=== PATIENT | female | born 1985 | race Caucasian/White ===

== ENCOUNTER 2017-11-10 19:44 | Emergency (ER) | payer SELFPAY ==
[2017-11-10 20:41] LABS: Urine Blood 3+ (NEG); Urine Glucose NEGATIVE (NEG); Urine Protein 2+ (NEG); Urine Specific Gravity 1.025 (1.005-1.030)
[2017-11-10 20:44] LABS: Urine Bacteria <20 /HPF (<20); Urine Culture Reflex Order NOT NEEDED; Urine RBC LOADED /HPF (NONE SEEN)
[2017-11-10] MEDS ORDERED: FENTANYL CITR 100 MCG/2 ML ONE (21:02)
[2017-11-10] MEDS ORDERED: NA CHLORIDE 0.9% 1,000 ML ONE (21:02)
[2017-11-10] MEDS ORDERED: ONDANSETRON 4 MG/2 ML VIAL ONE (21:02)
[2017-11-10] MEDS ORDERED: CEFTRIAXONE/SWI 1gm 1 GM/10 ML SYR ONE (21:08)
--- NOTE | 2017-11-10 21:48 | RAD REPORT ---
EXAM DESCRIPTION: CT - Stone Protocol - 11/10/2017 9:32 pm CLINICAL HISTORY: Abdominal pain, vomiting, hematuria, history of UTI COMPARISON: CT imaging December 2014 TECHNIQUE: Axial [address] imaging of the abdomen and pelvis was performed without IV contrast. No IV contrast was given because of allergy, abnormal renal function, patient refusal or physician re quest. Oral contrast was given. All CT scans are performed using dose optimization technique as appropriate and may include automated exposure control or mA/KV adjustment according to patient size. FINDINGS: No suspicious findings in the lung bases. The liver, spleen and pancreas show no suspicious findings on non-contrast imaging. Gallbladder and b iliary tree are also without suspicious finding. Gallstones can be occult. No hydronephrosis or suspicious renal mass. No significant adrenal finding. Isodense renal masses an d pyelonephritis cannot be excluded in the absence of IV contrast. The urinary bladder is without sig nificant finding. Uterus and ovaries show no suspicious findings. No fallopian tube dilatation. No dilated bowel loops or bowel wall thickening. No free air, free fluid or inflammatory stranding. N o hernia, mass or bulky lymphadenopathy. No suspicious bony findings. IMPRESSION: No hydronephrosis, obstructing calculus or other acute finding. No acute bladder find ing seen. Pyelonephritis and isodense masses are not excluded on a noncontrast study. Overall examination is limited in the absence of oral and IV contrast. No acute finding identifiable.
--- NOTE | 2017-11-10 22:25 | EDPHYS ---
Physician Documentation [facility] Name: Erin Saha Age: 32 yrs Sex: Female : 1985 Arrival Date: 11/10/2017 Time: 19:48 Bed 28 Private MD: ED Physician Jose Carreon HPI: 11/10 21:06 This 32 yrs old Female presents to ER via Ambulatory with complaints of gs Urinary Problem, Vomiting. 21:06 The patient presents with flank pain, urinary symptoms. Onset: The symptoms/episode gs began/occurred 1 week(s) ago. Modifying factors: The symptoms are alleviated by nothing, the symptoms are aggravated by nothing. Associated signs and symptoms: Pertinent positives: vomiting. Associated signs and symptoms: Pertinent positives: hematuria, Pertinent negatives: fever. Severity of symptoms: At their worst the symptoms were moderate, in the emergency department the symptoms are unchanged. The patient has experienced similar episodes in the past, a few times. 21:06 The patient has been recently seen by a physician: just lilia khan. 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 - Social history:: Smoking status: Patient uses tobacco products, smokes one-half pack cigarettes per day. - Ebola Screening: : No symptoms or risks identified at this time. ROS: 21:06 All other systems are negative. gs Exam: 21:06 Head/Face: Normocephalic, atraumatic. Eyes: Pupils equal round and reactive to light, gs extra-ocular motions intact. Lids and lashes normal. Conjunctiva and sclera are non-icteric and not injected. Cornea within normal limits. Periorbital areas with no swelling, redness, or edema. ENT: Nares patent. No nasal discharge, no septal abnormalities noted. Tympanic membranes are normal and external auditory canals are clear. Oropharynx with no redness, swelling, or masses, exudates, or evidence of obstruction, uvula midline. Mucous membranes moist. Neck: Trachea midline, no thyromegaly or masses palpated, and no cervical lymphadenopathy. Supple, full range of motion without nuchal rigidity, or vertebral point tenderness. No Meningismus. Chest/axilla: Normal chest wall appearance and motion. Nontender with no deformity. No lesions are appreciated. 21:06 Respiratory: Lungs have equal breath sounds bilaterally, clear to auscultation and percussion. No rales, rhonchi or wheezes noted. No increased work of breathing, no retractions or nasal flaring. Abdomen/GI: Soft, non-tender, with normal bowel sounds. No distension or tympany. No guarding or rebound. No evidence of tenderness throughout. Skin: Warm, dry with normal turgor. Normal color with no rashes, no lesions, and no evidence of cellulitis. MS/ Extremity: Pulses equal, no cyanosis. Neurovascular intact. Full, normal range of motion. Neuro: Awake and alert, GCS 15, oriented to person, place, time, and situation. Cranial nerves II-XII grossly intact. Motor strength 5/5 in all extremities. Sensory grossly intact. Cerebellar exam normal. Normal gait. 21:06 Constitutional: The patient appears alert, awake. 21:06 Cardiovascular: Rate: tachycardic, Rhythm: regular, Pulses: no pulse deficits are appreciated. 21:06 Back: CVA tenderness, that is moderate, is noted bilaterally. Vital Signs: 20:02 BP 154 / 101; Pulse 119; Resp 18; Temp 98.2; Pulse Ox 99% on R/A; Weight 77.11 kg (R); ak1 Height 5 ft. 3 in. (160.02 cm) (R); Pain 8/10; 21:45 BP 118 / 78; Pulse 91; Resp 17; Pulse Ox 100% on R/A; rk2 22:56 BP 131 / 83; Pulse 88; Resp 16; Pulse Ox 98% on R/A; rk2 20:02 Body Mass Index 30.11 (77.11 kg, 160.02 cm) ak1 MDM: 20:11 Patient medically screened. gs 21:06 Differential diagnosis: nonspecific abdominal pain, urinary tract infection, kidney gs stone. Data reviewed: vital signs, nurses notes. 11/10 20:16 Order name: Urine Microscopic Only; Complete Time: 20:50 gs 11/10 20:40 Order name: Urine Dipstick--Ancillary (enter results); Complete Time: 20:50 ms 11/10 20:40 Order name: Urine --Ancillary (enter results); Complete Time: 20:50 ms 11/10 20:40 Order name: CT Stone Protocol; Complete Time: 22:24 gs 11/10 20:16 Order name: Urine Dipstick-Ancillary (obtain specimen); Complete Time: 20:34 gs 11/10 20:17 Order name: Urine Test (obtain specimen); Complete Time: 20:34 gs Administered Medications: 21:04 Drug: fentaNYL (PF) 25 mcg Route: IVP; Site: left antecubital; rk2 22:39 Follow up: Response: No adverse reaction rk2 21:05 Drug: NS 0.9% 1000 ml Route: IV; Rate: 1 bolus; Site: left antecubital; rk2 22:40 Follow up: Response: No adverse reaction; IV Status: Completed infusion rk2 21:05 Drug: Zofran 4 mg Route: IVP; Site: left antecubital; rk2 22:40 Follow up: Response: No adverse reaction rk2 21:15 Drug: Rocephin - (cefTRIAXone) 1 grams Route: IVPB; Infused Over: 30 mins; Site: right kr2 upper arm; 22:39 Follow up: IV Status: Completed infusion rk2 21:25 Drug: fentaNYL (PF) 75 mcg Route: IVP; Site: right upper arm; rk2 22:39 Follow up: Response: No adverse reaction; Pain is decreased rk2 22:36 Drug: Demerol 25 mg Route: IVP; Site: right upper arm; rk2 Disposition: 11/10/17 22:25 Discharged to Home. Impression: Hematuria. - Condition is Stable. - Discharge Instructions: Hematuria, Adult. - Medication Reconciliation Form, Thank You Letter, Antibiotic Education, Prescription Opioid Use form. - Follow up: Brittney Diego; When: 2 - 3 days; Reason: Re-evaluation by your physician. Signatures: Dispatcher [employer] EDDonnie Hunter MD MD rn Krenek, Amber, RN RN ak1 Jose Carreon MD MD gs Reaves, Karey RN RN kr2 Simi Cruz, RN RN rk2 Corrections: (The following items were deleted from the chart) 22:57 22:25 11/10/2017 22:25 Discharged to Home. Impression: Hematuria. Condition is Stable. rk2 Discharge Instructions: Hematuria, Adult. Forms are Medication Reconciliation Form, Thank You Letter, Antibiotic Education, Prescription Opioid Use. Follow up: Brittney Diego; When: 2 - 3 days; Reason: Re-evaluation by your physician. rn
--- NOTE | 2017-11-10 22:25 | ER ---
Nurse's Notes 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 pt seen by PCP 3 ak1 days FUNCTIONAL SUPPORT ANALYST started Keflex, vomiting X3 days with increased blood in urine. Transition of care: patient was not received from another setting of care. Onset of symptoms is unknown. Risk Assessment: Do you want to hurt yourself or someone else? Patient reports no desire to harm self or others. Initial Sepsis Screen: Does the patient meet any 2 criteria? No. Patient's initial sepsis screen is negative. Does the patient have a suspected source of infection? No. Patient's initial sepsis screen is negative. Care prior to arrival: None. 19:59 Method Of Arrival: Ambulatory ak1 19:59 Acuity: KOKO 3 ak1 Triage Assessment: 21:15 General: Appears in no apparent distress. well groomed, well developed, well nourished, rk2 Behavior is calm, cooperative. 21:15 Pain: Complains of pain in abdomen. Neuro: Level of Consciousness is alert, obeys rk2 commands, Oriented to person, place, time, situation. Respiratory: Airway is patent Respiratory effort is even, unlabored, Respiratory pattern is regular, symmetrical. GI: Reports lower abdominal pain. 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 - Social history:: Smoking status: Patient uses tobacco products, smokes one-half pack cigarettes per day. - Ebola Screening: : No symptoms or risks identified at this time. Screenin:15 Abuse screen: Denies threats or abuse. rk2 21:15 Nutritional screening: No deficits noted. Tuberculosis screening: No symptoms or risk rk2 factors identified. Fall Risk None identified. Assessment: 22:00 Reassessment: Patient appears in no apparent distress at this time. No changes from rk2 previously documented assessment. Patient and/or family updated on plan of care and expected duration. Pain level reassessed. 22:00 GI: Reports lower abdominal pain. rk2 22:00 GI: Abd is soft X 4 quads. rk2 22:53 GI:. rk2 Vital Signs: 20:02 BP 154 / 101; Pulse 119; Resp 18; Temp 98.2; Pulse Ox 99% on R/A; Weight 77.11 kg (R); ak1 Height 5 ft. 3 in. (160.02 cm) (R); Pain 8/10; 21:45 BP 118 / 78; Pulse 91; Resp 17; Pulse Ox 100% on R/A; rk2 22:56 BP 131 / 83; Pulse 88; Resp 16; Pulse Ox 98% on R/A; rk2 20:02 Body Mass Index 30.11 (77.11 kg, 160.02 cm) ak1 ED Course: 19:48 Patient arrived in ED. al2 20:00 Triage completed. ak1 20:02 Arm band placed on Patient placed in an exam room, on a stretcher, Patient notified of ak1 wait time. 20:05 Jose Carreno MD is Attending Physician. gs 20:10 Simi Cruz, DANIA is Primary Nurse. rk2 21:04 CT Stone Protocol Sent. rk2 21:08 Radiology exam delayed due to patient refusing to come down to CT, wants pain meds. nj Notified Dr. Carreon. 21:15 Patient has correct armband on for positive identification. Bed in low position. Call rk2 light in reach. 21:15 Inserted saline lock: 24 gauge in right upper arm, using aseptic technique. kr2 21:[address] via stretcher. nj 21:31 CT completed. Patient tolerated procedure well. Patient moved back from CT. nj 21:32 CT Stone Protocol In Process Unspecified. EDMS 22:25 Brittney Diego MD is Referral Physician. rn 22:56 No provider procedures requiring assistance completed. IV discontinued. rk2 Administered Medications: 21:04 Drug: fentaNYL (PF) 25 mcg Route: IVP; Site: left antecubital; rk2 22:39 Follow up: Response: No adverse reaction rk2 21:05 Drug: NS 0.9% 1000 ml Route: IV; Rate: 1 bolus; Site: left antecubital; rk2 22:40 Follow up: Response: No adverse reaction; IV Status: Completed infusion rk2 21:05 Drug: Zofran 4 mg Route: IVP; Site: left antecubital; rk2 22:40 Follow up: Response: No adverse reaction rk2 21:15 Drug: Rocephin - (cefTRIAXone) 1 grams Route: IVPB; Infused Over: 30 mins; Site: right kr2 upper arm; 22:39 Follow up: IV Status: Completed infusion rk2 21:25 Drug: fentaNYL (PF) 75 mcg Route: IVP; Site: right upper arm; rk2 22:39 Follow up: Response: No adverse reaction; Pain is decreased rk2 22:36 Drug: Demerol 25 mg Route: IVP; Site: right upper arm; rk2 Outcome: 22:25 Discharge ordered by . rn 22:56 Discharged to home ambulatory, with family. rk2 22:56 Condition: good 22:56 Discharge instructions given to patient. 22:57 Patient left the ED. rk2 Signatures: Dispatcher [employer] EDMS Donnie Subramanian MD MD rn Davis, Victoria vr Krenek, Amber RN RN ak1 Itz Forde Gregory, MD MD gs Reaves, Karey RN RN [email or web address] Guadalupe Cutler Rhonda, RN RN rk2 Corrections: (The following items were deleted from the chart) 21:09 20:44 Patient moved to [facility]
[2017-11-10] MEDS ORDERED: MEPERIDINE HCL 50 MG/ML AMP ONE (22:35)
== END 2017-11-10 22:57 | disposition home or self-care (01) ==
LOC: ER 19:44
DX: R31.9 Hematuria, unspecified (principal); F32.9 Major depressive disorder, single episode, unspecified; F17.210 Nicotine dependence, cigarettes, uncomplicated; Z88.5 Allergy status to narcotic agent; Z88.6 Allergy status to analgesic agent; Z88.8 Allergy status to other drugs, medicaments and biological substances
CPT/HCPCS: 74176; 76377; 81003; 81015; 81025; 99284; J0696; J2175; J2405; J3010; J7030

== ENCOUNTER 2020-07-26 14:59 | Emergency (ER) | payer SELFPAY ==
--- OUTSIDE RECORDS SUMMARY | 2020-07-26 15:03 | XMS REPORT | Continuity of Care Document ---
:1985 Author Organization [facility] t Address [address] [place] [address] Care Team Providers Name Role Phone NONSTAFF Primary Care Physician Unavailable Jeancarlos GRACIA, F Attending Clinician KADEN Attending Clinician Unavailable BEATRIZ Attending Clinician Unavailable NAT Attending Clinician Unavailable MARTY Attending Clinician Unavailable LAW Attending Clinician Unavailable Adrianna WARNERP, T Attending Clinician THOMAS Attending Clinician Unavailable Akin Medellin MD Attending Clinician TERESITA Attending Clinician Unavailable Alfredo HENDERSON Attending Clinician Nikolay NAJERA E Attending Clinician Jer Hsu MD Attending Clinician PENNY Attending Clinician Unavailable KEITH Attending Clinician Unavailable Delmy Tee MD Attending Clinician Sandra Hwang APN Attending Clinician NELDA HAINES M.D. Attending Clinician Unavailable LAW Admitting Clinician Unavailable TERESITA Admitting Clinician Unavailable PENNY Admitting Clinician Unavailable NELDA HAINES M.D. Admitting Clinician Unavailable Payers Payer Name Policy Type Policy Number Effective Date Expiration Date Brisa reece [facility] [id number] [facility] Choice - Patients Medical Center Problems This patient has no known problems. Allergies, Adverse Reactions, Alerts Allergy Allergy Status Severity Reaction(s) Onset Inactive Treating Comm ents Source Name Type Date Date Clinician NSAIDS DA Active SV 2018-05 [facility] ([facility] 06-16 [place] roidal 00:00: d Anti-Inf 00 Medical [facility] dicyclom DA Active [facility] ine HCl 11-13 [place] 00:[facility]: e 00 [facility] ketorola DA Active [facility] c 11-13 [place] trometha 00:00: e mine 00 [facility] pantopra DA Active [facility] zole 11-13 [place] sodium 00:00: e 00 [facility] Center morphine DA Active U [facility] 11-13 [place] 00:[facility]: e 00 [facility] ibuprofe DA Active [place] [facility] n 11-13 [place] 00:[facility]: e 00 [facility] Center NSAIDS Allergy Active Severe cant breath [facility]idal Substanc 00:00: Patient Anti-Inf e 00 s [facility] Morphine Allergy Active Moderate rash and [facility] headache [facility] - [facility]anc 00:00: Patient e 00 [facility] dicyclom Allergy Active Severe CANT BREATHE [facility] ine HCl to 3-20 [facility]anc 00:00: Patient e 00 [facility] ketorola Allergy Active Severe BREATHING [facility] to PROBLEMS 3-20 [facility] - trometha Substanc 00:00: Patien t mine e 00 [facility] pantopra Allergy Active Severe BREATHING [facility] zole to PROBLEMS 3-20 [facility] - sodium Substanc 00:00: Patient e [facility] Center Medications Ordered Filled Start Stop Current Ordering Indication Dosage Frequency Signature Comments Components Source Medication Medication Date Date Medication? Clinician (SIG) Name Name Paroxetine Paroxetine Yes Twice [facility] Hcl (Paxil[facility] Hcl (Paxil) Daily [facility] - 40 Mg 40 Mg Patient Tablet Tablet s [facility] [place] Procedures This patient has no known procedures. Encounters Start End Encounter Admission Attending Care Care Encounter Source Date/Time Date/Time Type Type Clinicians Facility Department ID 2020-07-24 2020-07-24 Emergency Ibikunle, TRAU[place] [id number] 16:32:00 17:11:00 Padmini Carson [place] [id number] [id number] [id number] 014 2020-07-24 2020-07-24 Emergency WINGKUN, [place] [address] [id number] 845 [place] 00:00:00 00:00:00 MARCELINA 997 [place] 2020-07-21 2020-07-22 Emergency TRAUMA [id number] 20:51:00 00:39:00 [place] 350.1.13.10 4.2.7.2.686 [id number] 014 2020-07-22 2020-07-22 Emergency BEATRIZ, [place] [address] [id number] 23 [place] 00:00:00 00:00:00 WILLIAM 194 Method i 2020-07-01 2020-07-01 Emergency NAT, [place] [address] [id number] 253 [place] 00:00:00 00:00:00 CHEVY 665 Method i 2020-05-24 2020-05-24 Emergency NAT, [place] [address] [id number] 573 [place] 00:00:00 00:00:00 CHEVY 948 Method i 2020-05-01 2020-05-01 Emergency SVACH, [place] [address] [id number] 68 [place] 00:00:00 00:00:00 BRENT 953 Method i 2020-04-09 2020-04-11 Inpatient LAW, [facility] [id number] 24 [place] 00:00:00 00:00:00 HENRIQUE 618 Method i 2020-04-04 2020-04-04 Emergency Nima Rodasin [place] 1.2.840.114 [id number] 17:55:00 19:10:00 [facility] 350.1.13.10 4.2.7.2.686 [id number] 014 2020-04-04 2020-04-04 Emergency THOMAS OLEKSANDR [place] [address] 2100 [id number] [place] 00:00:00 00:00:00 928 Method i 2020-03-14 2020-03-14 Emergency OLEKSANDR GUZMAN [facility] 064 2100 [id number] [place] 00:00:00 00:00:00 821 Method i 2020-03-06 2020-03-07 Emergency Mallis, TRAU[place] 1.2.404.792 [id number] 17:53:00 00:10:00 [facility] 350.1.13.10 [place] 4.2.7.2.686 [id number] 014 2020-01-08 2020-01-09 Inpatient TERESITA [facility] 064 2100 [id number] [place] 00:00:00 00:00:00 ESTEBAN Vo Method i 2019-11-08 2019-11-09 Emergency Faulconer, [place] 1.2.840.114 [id number] 19:39:32 00:03:00 [facility] 350.1.13.10 4.2.7.2.686 [id number] 014 2019-11-07 2019-11-07 Patient Nguyen Link 1.2.840.114 [id number] 00:00:00 00:00:00 Outreach E [place] 350.1.13.10 [place] 4.2.7.2.686 [id number] 2019-11-04 2019-11-05 Emergency Hsu, TRAUMA 1.2.840.114 [id number] 19:42:45 00:33:00 Kami Randle [place] 350.1.13.10 4.2.7.2.686 [id number] 014 2019-10-19 2019-10-19 Patient Nguyen Link 1.2.840.114 [id number] 00:00:00 00:00:00 Outreach [place] 350.1.13.10 [place] 4.2.7.2.686 [id number] 403 2019-10-11 2019-10-11 Patient Nguyen Link 1.2.840.114 [id number] 00:00:00 00:00:00 Outreach [place] 350.1.13.10 [place] 4.2.7.2.686 [id number] 403 2019-10-09 2019-10-09 Emergency Ibikunle, TRAUMA 1.2.840.114 [id number] 16:30:36 18:56:00 Padmini [facility] 350.1.13.10 4.2.7.2.686 [id number] 014 2019-10-09 2019-10-09 Emergency Lacie, [facility] 1.2.804.810 [id number] 14:02:26 15:03:00 Tylor [facility] 350.1.13.10 [facility] 4.2.7.2.686 [facility] [id number] [address]) 2019-08-31 2019-08-31 Emergency Huber Rodas [facility] 1.2.840.114 [id number] 13:05:46 14:11:00 [facility] 350.1.13.10 [facility] 4.2.7.2.686 [facility] [id number] [address]) 2019-08-31 2019-08-31 Emergency KADEN, [place] [address] [id number] 447 [place] 00:00:00 00:00:00 MARCELINA 787 [place] 2019-08-05 2019-08-09 Inpatient ACRES, JHONATHAN [place] [address] 2100 [id number] [place] 00:00:00 00:00:00 671 Method i 2019-08-01 2019-08-01 Emergency KEITH, [place] [address] [id number] 35 [place] 00:00:00 00:00:00 YASIN [address] 2019-06-29 2019-06-30 Emergency Morrical, TRAU[place] 1.2.840.114 [id number] 20:28:39 03:26:00 Matthew Brock [place] 350.1.13.10 4.2.7.2.686 [id number] 014 2019-05-15 2019-05-15 Emergency OLEKSANDR GUZMAN [place] [address] 2100 [id number] [place] 00:00:00 00:00:[address] 2019-04-17 2019-04-17 Departed [facility] [id number] [facility] St. 01:52:00 03:13:00 Emergency 46 Luke s - Room Patient [facility] 2019-04-13 2019-04-13 Emergency OLEKSANDR GUZMAN [facility] 2100 [id number] [place] 00:00:00 00:00:[address] 2019-01-30 2019-01-30 Emergency Hwang, TRAUMA 1.2.825.225 [id number] 19:52:42 22:46:00 Adilson Flores [place] 350.1.13.10 4.2.7.2.686 [id number] 014 2017-07-24 2017-07-24 Departed [facility] [id number] [address] 02:30:00 04:50:[address] [place] [address] s - Room Patient s Medical Center Results Test Description Test Time Test Comments Results Result Comments Source BASIC METABOLIC PANEL 2019-08-31 15:20:00 Test Item Value Reference Range Interpretation Comme nts SODIUM (test code = NA) 137 mEq/L 134-147 N POTASSIUM (test code = K) 4.5 mEq/L 3.4-5.0 N CHLORIDE (test code = CL) 107 mEq/L 100-108 N CARBON DIOXIDE (test code = CO2) 24 mEq/L 21-33 N ANION GAP (test code = GAP) 11 0-20 N GLUCOSE (test code = GLU) 85 mg/dL 70-110 N BLOOD UREA NITROGEN (test code = 6 mg/dL 7-18 L BUN) GLOMERULAR FILTRATION RATE (test 94.7 105-110 L Units of measure = ml/min/1.73 code = GFR) m2 CREATININE (test code = CREAT) 0.7 mg/dL 0.6-1.3 N CALCIUM (test code = CA) 8.7 mg/dL 8.0-10.5 N HEPATIC FUNCTION [id number] 15:20:00 Test Item Value Reference Range Interpretation Comments TOTAL PROTEIN (test code = PROT) 8.0 g/dL 6.4-8.2 N ALBUMIN (test code = ALB) 4.00 g/dL 3.4-5.0 N BILIRUBIN TOTAL (test code = 0.4 MG/DL <1.5 N BILT) BILIRUBIN DIRECT (test code = < 0.10 MG/DL 0.0-0.30 N BILD) BILIRUBIN INDIRECT (test code = 0.30 MG/DL BILIND) SGOT/AST (test code = AST) 29 IUnit/L 15-37 N SGPT/ALT (test code = ALT) 18 IUnit/L 15-65 N ALKALINE PHOSPHATASE TOTAL (test 109 IUnit/L 20-125 N code = ALKP) [id number] 15:20:00 Test Item Value Reference Range Interpretation Comments LIPASE (test code = LIP) 82 IUnit/L 73-393 N HCG SERUM [id number] 15:20:00 Test Item Value Reference Range Interpretation Comments HCG SERUM QUAL (test code = SERUM NEGATIVE NEGATIVE HCGQL) BASIC METABOLIC [id number] 15:16:00 Test Item Value Reference Range Interpretation Comments SODIUM (test code = NA) 137 mEq/L 134-147 N POTASSIUM (test code = K) 4.5 mEq/L 3.4-5.0 N CHLORIDE (test code = CL) 107 mEq/L 100-108 N CARBON DIOXIDE (test code = CO2) 24 mEq/L 21-33 N ANION GAP (test code = GAP) 11 0-20 N GLUCOSE (test code = GLU) 85 mg/dL 70-110 N BLOOD UREA NITROGEN (test code = 6 mg/dL 7-18 L BUN) GLOMERULAR FILTRATION RATE (test 105-110 code = GFR) CREATININE (test code = CREAT) mg/dL 0.6-1.3 CALCIUM (test code = CA) 8.7 mg/dL 8.0-10.5 N HEPATIC FUNCTION [id number] 15:16:00 Test Item Value Reference Range Interpretation Comments TOTAL PROTEIN (test code = PROT) g/dL 6.4-8.2 ALBUMIN (test code = ALB) g/dL 3.4-5.0 BILIRUBIN TOTAL (test code = BILT) MG/DL <1.5 BILIRUBIN DIRECT (test code = BILD) MG/DL 0.0-0.30 SGOT/AST (test code = AST) IUnit/L 15-37 SGPT/ALT (test code = ALT) IUnit/L 15-65 ALKALINE PHOSPHATASE TOTAL (test IUnit/L 20-125 code = ALKP) [id number] 15:16:00 Test Item Value Reference Range Interpretation Comments LIPASE (test code = LIP) 82 IUnit/L 73-393 N HCG SERUM [id number] 15:16:00 Test Item Value Reference Range Interpretation Comments HCG SERUM QUAL (test code = SERUM NEGATIVE NEGATIVE HCGQL) BASIC METABOLIC [id number] 15:11:00 Test Item Value Reference Range Interpretation Comments SODIUM (test code = NA) mEq/L 134-147 POTASSIUM (test code = K) mEq/L 3.4-5.0 CHLORIDE (test code = CL) mEq/L 100-108 CARBON DIOXIDE (test code = CO2) mEq/L 21-33 ANION GAP (test code = GAP) 0-20 GLUCOSE (test code = GLU) mg/dL 70-110 BLOOD UREA NITROGEN (test code = BUN) mg/dL 7-18 GLOMERULAR FILTRATION RATE (test code 105-110 = GFR) CREATININE (test code = CREAT) mg/dL 0.6-1.3 CALCIUM (test code = CA) mg/dL 8.0-10.5 HEPATIC FUNCTION [id number] 15:11:00 Test Item Value Reference Range Interpretation Comments TOTAL PROTEIN (test code = PROT) g/dL 6.4-8.2 ALBUMIN (test code = ALB) g/dL 3.4-5.0 BILIRUBIN TOTAL (test code = BILT) MG/DL <1.5 BILIRUBIN DIRECT (test code = BILD) MG/DL 0.0-0.30 SGOT/AST (test code = AST) IUnit/L 15-37 SGPT/ALT (test code = ALT) IUnit/L 15-65 ALKALINE PHOSPHATASE TOTAL (test IUnit/L 20-125 code = ALKP) [id number] 15:11:00 Test Item Value Reference Range Interpretation Comments LIPASE (test code = LIP) IUnit/L 73-393 HCG SERUM [id number] 15:11:00 Test Item Value Reference Range Interpretation Comments HCG SERUM QUAL (test code = SERUM NEGATIVE NEGATIVE HCGQL) CBC W/AUTO [id number] 15:03:00 Test Item Value Reference Range Interpretation Comments WHITE BLOOD CELL (test code = 5.96 x10 3/uL 4.5-11.0 N WBC) RED BLOOD CELL (test code = 3.69 x10 6/uL 3.54-5.02 N RBC) HEMOGLOBIN (test code = HGB) 12.4 g/dL 11.0-15.0 N HEMATOCRIT (test code = HCT) 37.8 % 33.0-45.0 N MEAN CELL VOLUME (test code = 102.4 fL 81.0-99.0 H MCV) MEAN CELL HGB (test code = MCH) 33.6 pg 27.0-33.0 H MEAN CELL HGB CONCETRATION 32.8 g/dL 33.0-37.0 L (test code = MCHC) RED CELL DISTRIBUTION WIDTH CV 12.3 % 11.5-14.5 N (test code = RDW) RED CELL DISTRIBUTION WIDTH SD 46.3 fL 37.0-54.0 N (test code = RDW-SD) PLATELET COUNT (test code = 254 x10 3/uL 150-400 N PLT) MEAN PLATELET VOLUME (test code 9.1 fL 7.0-9.0 H = MPV) NEUTROPHIL % (test code = NT%) 59.9 % 56.0-77.0 N IMMATURE GRANULOCYTE % (test 0.2 % 0.0-2.0 N code = IG%) LYMPHOCYTE % (test code = LY%) 31.9 % 14.0-32.0 N MONOCYTE % (test code = MO%) 6.2 % 4.8-9.0 N EOSINOPHIL % (test code = EO%) 1.3 % 0.3-3.7 N BASOPHIL % (test code = BA%) 0.5 % 0.0-2.0 N NUCLEATED RBC % (test code = 0.0 % 0-0 N NRBC%) NEUTROPHIL # (test code = NT#) 3.57 x10 3/uL 2.0-7.6 N IMMATURE GRANULOCYTE # (test 0.01 x10 3/uL 0.00-0.03 N code = IG#) LYMPHOCYTE # (test code = LY#) 1.90 x10 3/uL 1.0-3.8 N MONOCYTE # (test code = MO#) 0.37 x10 3/uL 0.1-0.8 N EOSINOPHIL # (test code = EO#) 0.08 x10 3/uL 0.0-0.2 N BASOPHIL # (test code = BA#) 0.03 x10 3/uL 0.0-0.2 N NUCLEATED RBC # (test code = 0.00 x10 3/uL 0.0-0.1 N NRBC#) MANUAL DIFF REQUIRED (test code NO = MDIFF) - CT ABD PELVIS W/O [id number] 01:13:00 Name: BRANDEE ALMAZAN [facility]: 1985 Age/S: 34 / F [address] [facility] Unit #: [id number] Loc: [place] [address] Phys: Chi Patel MD Acct: [id number] Dis Date: Status: REG ER PHONE #: [phone] Exam Date: 04/17/201951 FAX #: [phone] Reason: RIGHT FL ANK PAIN EXAMS: CPTCODE: [id number] CT ABD PELVIS W/O CONT 04951 AFTER HOURSSERVICE ON: 04/17/2019 12:[address] Scan of the Abdomen and Pelvis Without Contrast Location Code M12 History: RIGHT FLANK PAIN Technique: Axial and reconstructed coronal scans were performed on a helical scanner pre oral and IV contrast. Study is limited secondary to lack of oral and IV contrast. One or more of the following dose reduction techniques were used: Automated exposure control, adjustment of the mA and/or kV according to patient size, and/or utilization of iterative reconstruction technique. Findings: LIVER: No significant findings. GALLBLADDER/BILIARY: No significant findings. PANCREAS: No significant findings. SPLEEN: No significant findings. ADRENALS: No significant findings. KIDNEYS: No nephrolithiasis or hydronephrosis. BLADDER: No significant findings. GASTROINTESTINAL: No significant findings. The appendix is unremarkable. OTHER: Uterus is unremarkable. There is trace free fluid in the cul-de-sac. Multiple small ovarian follicles are seen in the left ovary. . IMPRESSION: No acute findings in the abdomen or pelvis. at 0113 Reported and signed by: Lilliam Mo M.D. PAGE 1 Signed Report (CONTINUED) Name: BRANDEE ALMAZAN [facility] : 1985 Age/S: 34 / F Sarah[facility] Unit #: [id number] Loc: [place] [address] Phys: Chi Patel MD Acct: [id number] Dis Date: Status: REG ER PHONE #: [phone] Exam Date: 04/17/201951 FAX #: [phone] Reason: RIGHT FLANK PAIN EXAMS: CPT CODE: [id number] CT ABD PELVIS W/O CONT 47533 <Continued> CC: hCi Patel MD Technologist:RONALDO ALSTON RT(R),RDMS,CT CTDI: DLP: Trnscb Date/Time: 04/17/2019 (0113) [id number] Orig Print D/T: S: 04/17/2019 (0116) PAGE 2 Signed ReportBASIC METABOLIC [id number] 23:56:00 Test Item Value Reference Range Interpretation Comments SODIUM (test code = 140 mmol/L 136-145 N NA) POTASSIUM (test code = 3.4 mmol/L 3.5-5.1 L K) CHLORIDE (test code = 102 mmol/L 101-109 N CL) CARBON DIOXIDE (test 25.9 mmol/L 21-32 N code = CO2) ANION GAP (test code = 16 mmol/L 10-20 N GAP) GLUCOSE (test code = 77 mg/dL 74-106 N GLU) BLOOD UREA NITROGEN 11 mg/dL 3-21 N (test code = BUN) GLOMERULAR FILTRATION > 60 mL/min >=60 Estima greg GFR by RATE (test code = GFR) using Modified MDRD formula.Chronic kidney disease is defined as eith er kidney damageor GFR <60 mL/min/1.73 m2 for >3 months. CREATININE (test code 0.65 mg/dL 0.55-1.3 N = CREAT) BUN/CREATININE RATIO 16.9 10-20 N (test code = BUN/CREA) CALCIUM (test code = 8.8 mg/dL 8.4-10.2 N CA) HCG SERUM [id number] 23:56:00 Test Item Value Reference Range Interpretation Comments HCG SERUM QUAL (test NEGATIVE NEGATIVE This HC GQL test is NOT code = HCGQL) applicable for MALE patients.Check with nurse about probable order error.If Tumor Marker Test needed, nu rse should order test "HCG TU"(Test #550.62195)---- - BASIC METABOLIC [id number] 23:53:00 Test Item Value Reference Range Interpretation Comments SODIUM (test code = NA) mmol/L 135-148 POTASSIUM (test code = K) mmol/L 3.5-5.1 CHLORIDE (test code = CL) mmol/L 101-109 CARBON DIOXIDE (test code = CO2) mmol/L 21-32 ANION GAP (test code = GAP) mmol/L 10-20 GLUCOSE (test code = GLU) mg/dL 74-106 BLOOD UREA NITROGEN (test code = BUN) mg/dL 3-21 GLOMERULAR FILTRATION RATE (test code mL/min >=60 = GFR) CREATININE (test code = CREAT) mg/dL 0.55-1.3 BUN/CREATININE RATIO (test code = 10-20 BUN/CREA) CALCIUM (test code = CA) mg/dL 8.4-10.2 HCG SERUM [id number] 23:53:00 Test Item Value Reference Range Interpretation Comments HCG SERUM QUAL (test NEGATIVE NEGATIVE This HC GQL test is NOT code = HCGQL) applicable for MALE patients.Check with nurse about probable order error.If Tumor Marker Test needed, nu rse should order test "HCG TU"(Test #550.34801)---- - URINALYSIS [id number] 23:44:00 Test Item Value Reference Range Interpretation Comments UA COLOR (test code = BROWN YELLOW A COLU) UA APPEARANCE (test code HAZY CLEAR A = APPU) UA GLUCOSE DIPSTICK (test norm mg/dL NEGATIVE code = DGLUU) UA BILIRUBIN DIPSTICK NEGATIVE mg/dL NEGATIVE (test code = BILU) UA KETONE DIPSTICK (test 5 (Trace) mg/dL NEGATIVE A code = KETU) UA SPECIFIC GRAVITY (test 1.025 1.001-1.035 code = SGU) UA BLOOD DIPSTICK (test 250 (4+) Pascual/uL NEGATIVE A code = ANAHY) UA PH DIPSTICK (test code 5.0 5.0-8.0 = GABBY) UA PROTEIN DIPSTICK (test 30 (1+) mg/dL Neg-15 A code = PROU) UA UROBILINIOGEN DIPSTICK norm mg/dL 0.0-0.2 (test code = URO) UA NITRITE DIPSTICK (test NEGATIVE NEGATIVE code = KIERRA) UA LEUKOCYTE ESTERASE 25 Amy/uL (Trace) uL NEGATIVE A DIPSTICK (test code = LEUU) UA WBC (test code = WBCU) 3-5 per HPF 0-5 UA RBC (test code = RBCU) TNTC per HPF 0-5 A UA EPITHELIAL CELLS (test Few (2-5/hpf) per Few code = EPIU) HPF UA BACTERIA (test code = MANY per HPF NONE A BACU) Urine Source? Clean CatchCBC W/O [id number] 23:36:00 Test Item Value Reference Range Interpretation Comments WHITE BLOOD CELL (test code = 6.6 K/mm3 4.5-12.5 N WBC) RED BLOOD CELL (test code = 3.24 mill/mm3 3.7-5.2 L RBC) HEMOGLOBIN (test code = HGB) 11.0 gram/dL 11.5-15.5 L HEMATOCRIT (test code = HCT) 33.6 % 36.0-46.0 L MEAN CELL VOLUME (test code = 103.7 fL 80-98 H MCV) MEAN CELL HGB (test code = MCH) 34.0 picogram 27.0-33.0 H MEAN CELL HGB CONCETRATION 32.7 gram/dL 33.0-36.0 L (test code = MCHC) RED CELL DISTRIBUTION WIDTH 12.6 % 11.6-16.2 N (test code = RDW) RED CELL DISTRIBUTION WIDTH SD 48.1 fL 37.0-51.0 N (test code = RDW-SD) PLATELET COUNT (test code = 220 K/mm3 150-450 N PLT) MEAN PLATELET VOLUME (test code 8.4 fL 6.7-11.0 N = MPV) URINALYSIS [id number] 23:36:00 Test Item Value Reference Range Interpretation Comments UA COLOR (test code = BROWN YELLOW A COLU) UA APPEARANCE (test code HAZY CLEAR A = APPU) UA GLUCOSE DIPSTICK (test norm mg/dL NEGATIVE code = DGLUU) UA BILIRUBIN DIPSTICK NEGATIVE mg/dL NEGATIVE (test code = BILU) UA KETONE DIPSTICK (test 5 (Trace) mg/dL NEGATIVE A code = KETU) UA SPECIFIC GRAVITY (test 1.025 1.001-1.035 code = SGU) UA BLOOD DIPSTICK (test 250 (4+) Pascual/uL NEGATIVE A code = ANAYH) UA PH DIPSTICK (test code 5.0 5.0-8.0 = GABBY) UA PROTEIN DIPSTICK (test 30 (1+) mg/dL Neg-15 A code = PROU) UA UROBILINIOGEN DIPSTICK norm mg/dL 0.0-0.2 (test code = URO) UA NITRITE DIPSTICK (test NEGATIVE NEGATIVE code = KIERRA) UA LEUKOCYTE ESTERASE 25 Amy/uL (Trace) uL NEGATIVE A DIPSTICK (test code = LEUU) UA WBC (test code = WBCU) per HPF 0-5 UA RBC (test code = RBCU) per HPF 0-5 UA EPITHELIAL CELLS (test per HPF Few code = EPIU) UA BACTERIA (test code = per HPF NONE BACU) Urine Source? Clean CatchCOMPREHENSIVE METABOLIC [id number] 16:57:00 Test Item Value Reference Range Interpretation Comments SODIUM (test code = NA) 136 mmol/l 134.0-147.0 N POTASSIUM (test code = 4.6 mmol/L 3.6-5.2 N SAMPL E 1+ K) HEMOLYSED, REDR AW IF DEEMED NECESSARY. CHLORIDE (test code = 103 mmol/l 98.0-107.0 N CL) CARBON DIOXIDE (test 20.9 mmol/l 21.0-33.0 L code = CO2) ANION GAP (test code = 16.7 0-20 N GAP) GLUCOSE (test code = 94 mg/dl 70.0-110.0 N GLU) BLOOD UREA NITROGEN 7 mg/dl 7.0-18.0 N (test code = BUN) CREATININE (test code = 0.52 mg/dL 0.60-1.30 L CREAT) GFR NON BLACK (test 141 mL/min 105-110 H code = GFRNONBLACK) GFR BLACK (test code = 171 mL/min 127-133 H GFRBLACK) TOTAL PROTEIN (test 7.4 GM/DL 6.0-8.1 N code = PROT) ALBUMIN (test code = 3.7 gm/dL 3.2-4.7 N ALB) CALCIUM (test code = 8.2 mg/dl 8.0-10.5 N CA) BILIRUBIN TOTAL (test 0.4 mg/dl 0.0-1.0 N code = BILT) SGOT/AST (test code = 30 Units/L 15.0-37.0 N AST) SGPT/ALT (test code = 9 Units/L 12.0-78.0 L ALT) ALKALINE PHOSPHATASE 95 Units/L 50.0-136.0 N TOTAL (test code = ALKP) COMPREHENSIVE METABOLIC [id number] 16:50:00 Test Item Value Reference Range Interpretation Comments SODIUM (test code = NA) 136 mmol/l 134.0-147.0 N POTASSIUM (test code = 4.6 mmol/L 3.6-5.2 N SAMPL E 1+ K) HEMOLYSED, REDR AW IF DEEMED NECESSARY. CHLORIDE (test code = 103 mmol/l 98.0-107.0 N CL) CARBON DIOXIDE (test 20.9 mmol/l 21.0-33.0 L code = CO2) ANION GAP (test code = 16.7 0-20 N GAP) GLUCOSE (test code = mg/dl 70.0-110.0 GLU) BLOOD UREA NITROGEN mg/dl 7.0-18.0 (test code = BUN) CREATININE (test code = mg/dL 0.60-1.30 CREAT) GFR NON BLACK (test mL/min 105-110 code = GFRNONBLACK) GFR BLACK (test code = mL/min 127-133 GFRBLACK) TOTAL PROTEIN (test gm/dL 6.4-8.2 code = PROT) ALBUMIN (test code = gm/dl 3.2-4.7 ALB) CALCIUM (test code = mg/dl 8.0-10.5 CA) BILIRUBIN TOTAL (test mg/dl 0.0-1.0 code = BILT) SGOT/AST (test code = Units/L 15.0-37.0 AST) SGPT/ALT (test code = Units/L 12.0-78.0 ALT) ALKALINE PHOSPHATASE Units/L 50.0-136.0 TOTAL (test code = ALKP) CBC W/AUTO [id number] 16:49:00 Test Item Value Reference Range Interpretation Comments WHITE BLOOD CELL (test code = 7.0 K/mm3 4.5-11.0 N WBC) RED BLOOD CELL (test code = 3.42 M/mm3 3.80-5.20 L RBC) HEMOGLOBIN (test code = HGB) 11.6 gm/dL 12.0-16.0 L HEMATOCRIT (test code = HCT) 36.7 % 36.0-48.0 N MEAN CELL VOLUME (test code = 107.3 UM3 82.0-99.0 H MCV) MEAN CELL HGB (test code = MCH) 33.9 UUG 25.5-32.5 H MEAN CELL HGB CONCETRATION 31.6 gm/dL 29.0-35.5 N (test code = MCHC) RED CELL DISTRIBUTION WIDTH 12.6 % 11.5-15.0 N (test code = RDW) RED CELL DISTRIBUTION WIDTH SD 49.4 fL 34.8-50.2 N (test code = RDW-SD) PLATELET COUNT (test code = 245 K/mm3 150-400 N PLT) MEAN PLATELET VOLUME (test code 10.0 fl 7.4-10.4 N = MPV) NEUTROPHIL % (test code = NT%) 60.5 % 49.0-76.0 N IMMATURE GRANULOCYTE % (test 0.6 % 0.0-0.4 H code = IG%) LYMPHOCYTE % (test code = LY%) 30.4 % 23.0-38.0 N MONOCYTE % (test code = MO%) 7.5 % 1.0-10.0 N EOSINOPHIL % (test code = EO%) 0.6 % 1.0-5.0 L BASOPHIL % (test code = BA%) 0.4 % 0.0-1.0 N NEUTROPHIL # (test code = NT#) 4.3 K/mm3 2.4-6.3 N IMMATURE GRANULOCYTE # (test 0.04 x10 3/uL 0.00-0.07 N code = IG#) LYMPHOCYTE # (test code = LY#) 2.1 K/mm3 1.2-4.0 N MONOCYTE # (test code = MO#) 0.5 K/mm3 0.0-0.6 N EOSINOPHIL # (test code = EO#) 0.0 K/MM3 0.0-0.7 N BASOPHIL # (test code = BA#) 0.0 K/mm3 0.0-0.2 N DRUGS OF ABUSE SCREEN [id number] 20:14:00 Test Item Value Reference Range Interpretation Comments URN COCAINE (test code NEGATIVE NEGATIVE Cocai ne cut-off = COCAURN) concentration: 300 ng/mL URN CANNABINOIDS (test NEGATIVE NEGATIVE Canna binoids cut-off code = CANNABURN) concentrat ion: 50 ng/mL URN AMPHETAMINE (test NEGATIVE NEGATIVE Amphet amine cut-off code = AMPHETURN) concentrat ion: 1000 ng/mL URN BARBITURATE (test NEGATIVE NEGATIVE Barbit urate cut-off code = BARBITURN) concentrat ion: 200 ng/mL URN BENZODIAZEPINE NEGATIVE NEGATIVE Benzodiaz epine cut-off (test code = BENZOURN) fabiola ntration: 200 ng/mL URN OPIATES (test code NEGATIVE NEGATIVE Opiat es cut-off = OPIATURN) concentration: 200 ng/mL URN PHENCYCLIDINE (PCP) NEGATIVE NEGATIVE Phen cyclidine(PCP) (test code = PHENCURN) cut-o ff concentration: 25 ng/ml URN METHADONE (test NEGATIVE NEGATIVE Methadon e cut-off code = METHAURN) concentrati on: 300 ng/mL URINALYSIS [id number] 20:12:00 Test Item Value Reference Range Interpretation Comments UA COLOR (test code = DARK YELLOW COLU) UA APPEARANCE (test code CLDY = APPU) UA GLUCOSE DIPSTICK (test NORMAL mg/dl NORMAL code = DGLUU) UA BILIRUBIN DIPSTICK NEGATIVE mg/dL NEGATIVE (test code = BILU) UA KETONE DIPSTICK (test NEGATIVE mg/dl NEGATIVE code = KETU) UA SPECIFIC GRAVITY (test 1.020 1.000-1.030 code = SGU) UA BLOOD DIPSTICK (test 250 Pascual/micL NEGATIVE A code = ANAHY) Pascual/micL UA PH DIPSTICK (test code 5.0 5.0-9.0 = GABBY) UA PROTEIN DIPSTICK (test 30 mg/dl NEGATIVE A code = PROU) UA UROBILINIOGEN DIPSTICK NORMAL mg/dl NORMAL (test code = URO) UA NITRITE DIPSTICK (test NEGATIVE NEGATIVE code = KIERRA) UA LEUKOCYTE ESTERASE 25 Amy/micL Amy/micL NEGATIVE A DIPSTICK (test code = LEUU) UA WBC (test code = WBCU) 0-2 WBC/HPF NONE UA RBC (test code = RBCU) TNTC RBC/HPF 0-3 A UA EPITHELIAL CELLS (test 0-3 EPI/HPF 0-3 code = EPIU) UA BACTERIA (test code = TRACE NONE BACU) UR HCG [id number] 20:12:00 Test Item Value Reference Range Interpretation Comments UR HCG QUAL (test code = HCGQLU) NEGATIVE NEGATIVE URINALYSIS [id number] 20:03:00 Test Item Value Reference Range Interpretation Comments UA COLOR (test code = COLU) UA APPEARANCE (test code = APPU) UA GLUCOSE DIPSTICK (test NORMAL mg/dl NORMAL code = DGLUU) UA BILIRUBIN DIPSTICK NEGATIVE mg/dL NEGATIVE (test code = BILU) UA KETONE DIPSTICK (test NEGATIVE mg/dl NEGATIVE code = KETU) UA SPECIFIC GRAVITY (test 1.020 1.000-1.030 code = SGU) UA BLOOD DIPSTICK (test 250 Pascual/micL NEGATIVE A code = ANAHY) Pascual/micL UA PH DIPSTICK (test code 5.0 5.0-9.0 = GABBY) UA PROTEIN DIPSTICK (test 30 mg/dl NEGATIVE A code = PROU) UA UROBILINIOGEN DIPSTICK NORMAL mg/dl NORMAL (test code = URO) UA NITRITE DIPSTICK (test NEGATIVE NEGATIVE code = KIERRA) UA LEUKOCYTE ESTERASE 25 Amy/micL Amy/micL NEGATIVE A DIPSTICK (test code = LEUU) UA WBC (test code = WBCU) WBC/HPF NONE UA RBC (test code = RBCU) RBC/HPF 0-3 UA EPITHELIAL CELLS (test EPI/HPF 0-3 code = EPIU) UA BACTERIA (test code = NONE BACU) UR HCG [id number] 20:03:00 Test Item Value Reference Range Interpretation Comments UR HCG QUAL (test code = HCGQLU) NEGATIVE
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
[2020-07-26 18:31] VITALS: BP 134/94; TEMP 97.8; O2SAT 100
== END 2020-07-26 18:23 | disposition left against medical advice (07) ==
LOC: ER 14:59
DX: Z02.9 Encounter for administrative examinations, unspecified (principal)
CPT/HCPCS: 99281

== ENCOUNTER 2020-07-31 13:09 | Emergency (ER) | payer SELFPAY ==
--- OUTSIDE RECORDS SUMMARY | 2020-07-31 13:13 | XMS REPORT | Continuity of Care Document ---
:1985 Author Organization [facility] t Address [address] [place] [address] Care Team Providers Name Role Phone NONSTAFF Primary Care Physician Unavailable Jeancarlos WARNERP, F Attending Clinician KADEN Attending Clinician Unavailable [...] Number Effective Date Expiration Date Brisa reece [facility] [phone] [facility] Problems This patient has no known problems. Allergies, Adverse Reactions, Alerts Allergy Allergy Status Severity Reaction(s) Onset Inactive Treating Comm ents Source Name Type Date Date Clinician NSAIDS DA Active SV 2018-05 [facility] ([facility] 06-16 [place] roidal 00:00: d Anti-Inf 00 [facility] dicyclom DA Active [facility] ine HCl 11-13 [place] 00:00: d 00 [facility] ketorola DA Active [facility] c 11-13 [place] trometha 00:00: d mine 00 [facility] pantopra DA Active [facility] zole 11-13 [place] sodium 00:00: d 00 [facility] morphine DA Active U [facility] 11-13 [place] 00:00: d 00 [facility] ibuprofe DA Active [place] [facility] n 11-13 [place] 00:00: d 00 [facility] NSAIDS Allergy Active Severe cant breath [facility] roidal Sub[facility]anc 00:00: Patient Anti-Inf e 00 s [facility] Morphine Allergy Active Moderate rash and [facility] to headache [facility]- [facility] - Substanc 00:00: Patient e 00 [facility] dicyclom Allergy Active Severe CANT BREATHE [facility] HCl to 3-20 [facility] - Substanc 00:00: Patient e 00 [facility] ketorola Allergy Active Severe BREATHING [facility] to PROBLEMS 3-20 [facility] - trometha Substanc 00:00: Patien t mine e 00 [facility] pantopra Allergy Active Severe BREATHING [facility] zole to PROBLEMS 3-20 [facility] - sodium Substanc 00:00: Patient e 00 [facility] Medications Ordered Filled Start Stop Current Ordering Indication Dosage Frequency Signature Comments Components Source Medication Medication Date Date Medication? Clinician (SIG) Name Name Paroxetine Paroxetine Yes Twice [facility] Hcl (Paxil) Hcl (Paxil) Daily [facility] - 40 Mg 40 Mg Patient Tablet Tablet [facility] Procedures This patient has no known procedures. Encounters Start End Encounter Admission Attending Care Care Encounter Source Date/Time Date/Time Type Type Clinicians Facility Department ID 2020-07-24 2020-07-24 Emergency Ibikunle, [place] [id number] 16:32:00 17:11:00 Padmini Carson [place] [id number] 4.2.7.2.686 [id number] 014 2020-07-24 2020-07-24 Emergency W[place]KUN, [place] [address] [id number] [place] 00:00:00 00:00:00 MARCELINA 997 Wi thodi 2020-07-21 2020-07-22 Emergency TRAU[place] [id number] [id number] 20:51:00 00:39:00 [place] 350.1.13.10 4.2.7.2.686 [id number] 014 2020-07-22 2020-07-22 Emergency BEATRIZ, [place] [address] [id number] 23 [place] 00:00:00 00:00:00 WILLIAM 194 Method i 2020-07-01 2020-07-01 Emergency NAT, [place] [address] [id number] 253 [place] 00:00:00 00:00:00 CHEVY 665 Method i 2020-05-24 2020-05-24 Emergency NAT, [place] [address] [id number] 573 [place] 00:00:00 00:00:00 CHEVY 948 Method i 2020-05-01 2020-05-01 Emergency SVACH, [place] [address] [id number] 68 [place] 00:00:00 00:00:00 BRENT 953 Method i 2020-04-09 2020-04-11 Inpatient LAW, [facility] [id number] 24 [place] 00:00:00 00:00:00 HENRIQUE 618 Method i 2020-04-04 2020-04-04 Emergency Nima Rodasin [place] 1.2.840.114 [id number] 17:55:00 19:10:00 [facility] 350.1.13.10 4.2.7.2.686 [id number] 014 2020-04-04 2020-04-04 Emergency THOMAS OLEKSANDR [place] [address] [id number] [place] 00:00:00 00:00:00 928 Method i 2020-03-14 2020-03-[address] [facility] 064 [id number] [place] 00:00:00 00:00:00 821 Method i 2020-03-06 2020-03-07 Emergency Mallis, [place] 1.2.237.604 [id number] 17:53:00 00:10:00 [facility] 350.1.13.10 [place] 4.2.7.2.686 [id number] 014 2020-01-08 2020-01-[address] [facility] 064 [id number] [place] 00:00:00 00:00:00 ESTEBAN Vo Method i 2019-11-08 2019-11-09 Emergency Faulconer, [place] 1.2.840.114 [id number] 19:39:32 00:03:00 [facility] 350.1.13.10 4.2.7.2.686 [id number] 2019-11-07 2019-11-07 Patient Nguyen Link 1.2.840.114 [id number] 00:00:00 00:00:00 Outreach E [place] 350.1.13.10 [place] 4.2.7.2.686 [id number] 2019-11-04 2019-11-05 Emergency Hsu, [place] 1.2.840.114 [id number] 19:42:45 00:33:00 Kami Randle [place] 350.1.13.10 4.2.7.2.686 [id number] 014 2019-10-19 2019-10-19 Patient Nguyen Link 1.2.840.114 [id number] 00:00:00 00:00:00 Outreach E [place] 350.1.13.10 [place] 4.2.7.2.686 [id number] 2019-10-11 2019-10-11 Patient Nguyen Link 1.2.840.114 [id number] 00:00:00 00:00:00 Outreach E [place] 350.1.13.10 [place] 4.2.7.2.686 [id number] 2019-10-09 2019-10-09 Emergency Ibikunle, [place] 1.2.840.114 [id number] 16:30:36 18:56:00 Padmini [facility] 350.1.13.10 4.2.7.2.686 [id number] 014 2019-10-09 2019-10-09 Emergency Lacie, [facility] [id number] [id number] 14:02:26 15:03:00 Tylor [facility] 350.1.13.10 [employer] 4.2.7.2.686 [facility] [id number] [address]) 2019-08-31 2019-08-31 Emergency Huber Rodas [facility] 1.2.840.114 [id number] 13:05:46 14:11:00 [facility] 350.1.13.10 League 4.2.7.2.686 [facility] [id number] [address]) 2019-08-31 2019-08-31 Emergency KADEN, [place] [address] [id number] 447 [place] 00:00:00 00:00:00 MARCELINA 787 Wi thodi 2019-08-05 2019-08-09 Inpatient ACRES, JHONATHAN [place] [address] [id number] [id number] [place] 00:00:00 00:00:00 671 Method i 2019-08-01 2019-08-01 Emergency KEITH, [place] [address] [id number] 35 [place] 00:00:00 00:00:00 YASIN [address] 2019-06-29 2019-06-30 Emergency Morrical, [place] 1.2.840.114 [id number] 20:28:39 03:26:00 Matthew Brock [place] 350.1.13.10 4.2.7.2.686 [id number] 014 2019-05-15 2019-05-15 Emergency OLEKSANDR GUZMAN [place] [address] [id number] [place] 00:00:00 00:00:[address] 2019-04-17 2019-04-17 Departed [facility] [id number] [address] [facility]. 01:52:00 03:13:00 Emergency 46 Luke s - Room Patient [facility] 2019-04-13 2019-04-13 Emergency OLEKSANDR GUZMAN [facility] 2100 [id number] [place] 00:00:00 00:00:[address] 2019-01-30 2019-01-30 Emergency Hwang, [place] [id number] 19:52:42 22:46:00 Adilson Flores [place] 350.1.13.10 4.2.7.2.686 [id number] 014 2017-07-24 2017-07-24 Departed [facility] [id number] [address] 02:30:00 04:50:[address] [place] [address] s - Room Patient s [facility] [...] CA) 8.7 mg/dL 8.0-10.5 N HEPATIC FUNCTION [id number] 15:20:00 Test Item Value Reference Range Interpretation [...] 109 IUnit/L 20-125 N code = ALKP) [id number] 15:20:00 Test Item Value Reference Range Interpretation Comments LIPASE (test code = LIP) 82 IUnit/L 73-393 N HCG SERUM [id number] 15:20:00 Test Item Value Reference Range Interpretation Comments HCG SERUM QUAL (test code = SERUM NEGATIVE NEGATIVE HCGQL) BASIC METABOLIC [id number] 15:16:00 Test Item Value Reference Range Interpretation [...] CA) 8.7 mg/dL 8.0-10.5 N HEPATIC FUNCTION [id number] 15:16:00 Test Item Value Reference Range Interpretation Comments TOTAL PROTEIN (test code = PROT) g/dL 6.4-8.2 ALBUMIN (test code = ALB) g/dL 3.4-5.0 BILIRUBIN TOTAL (test code = BILT) MG/DL <1.5 BILIRUBIN DIRECT (test code = BILD) MG/DL 0.0-0.30 SGOT/AST (test code = AST) IUnit/L 15-37 SGPT/ALT (test code = ALT) IUnit/L 15-65 ALKALINE PHOSPHATASE TOTAL (test IUnit/L 20-125 code = ALKP) [id number] 15:16:00 Test Item Value Reference Range Interpretation Comments LIPASE (test code = LIP) 82 IUnit/L 73-393 N HCG SERUM [id number] 15:16:00 Test Item Value Reference Range Interpretation Comments HCG SERUM QUAL (test code = SERUM NEGATIVE NEGATIVE HCGQL) BASIC METABOLIC [id number] 15:11:00 Test Item Value Reference Range Interpretation [...] code = CA) mg/dL 8.0-10.5 HEPATIC FUNCTION [id number] 15:11:00 Test Item Value Reference Range Interpretation Comments TOTAL PROTEIN (test code = PROT) g/dL 6.4-8.2 ALBUMIN (test code = ALB) g/dL 3.4-5.0 BILIRUBIN TOTAL (test code = BILT) MG/DL <1.5 BILIRUBIN DIRECT (test code = BILD) MG/DL 0.0-0.30 SGOT/AST (test code = AST) IUnit/L 15-37 SGPT/ALT (test code = ALT) IUnit/L 15-65 ALKALINE PHOSPHATASE TOTAL (test IUnit/L 20-125 code = ALKP) [id number] 15:11:00 Test Item Value Reference Range Interpretation Comments LIPASE (test code = LIP) IUnit/L 73-393 HCG SERUM [id number] 15:11:00 Test Item Value Reference Range Interpretation Comments HCG SERUM QUAL (test code = SERUM NEGATIVE NEGATIVE HCGQL) CBC W/AUTO [id number] 15:03:00 Test Item Value Reference Range Interpretation [...] = MDIFF) - CT ABD PELVIS W/O [id number] 01:13:00 Name: BRANDEE ALMAZAN Critical access hospital: 1985 Age/S: 34 / F [address] [facility] Unit #: [id number] Loc: [place] [address] Phys: Chi Patel MD Acct: [id number] Dis Date: Status: REG ER PHONE #: [phone] Exam Date: 04/17/201951 FAX #: [phone] Reason: RIGHT FL ANK PAIN EXAMS: CPTCODE: [id number] CT ABD PELVIS W/O CONT 19924 AFTER HOURSSERVICE ON: 04/17/2019 12:[address] [...] 1 Signed Report (CONTINUED) Name: BRANDEE ALMAZAN [facility] : 1985 Age/S: 34 / F [facility] Unit #: [id number] Loc: [place] [address] Phys: Chi Patel MD Acct: [id number] Dis Date: Status: REG ER PHONE #: [phone] Exam Date: 04/17/201951 FAX #: [phone] Reason: RIGHT FLANK PAIN EXAMS: CPT CODE: [id number] CT ABD PELVIS W/O CONT 12301 <Continued> CC: Chi Patel MD Technologist:RONALDO ALSTON RT(R),RDMS,CT CTDI: DLP: Trnscb Date/Time: 04/17/2019 (0113) [id number] Orig Print D/T: S: 04/17/2019 (0116) PAGE 2 Signed ReportBASIC METABOLIC [id number] 23:56:00 Test Item Value Reference Range Interpretation [...] 8.8 mg/dL 8.4-10.2 N CA) HCG SERUM [id number] 23:56:00 Test Item Value Reference Range Interpretation Comments HCG SERUM QUAL (test NEGATIVE NEGATIVE This HC GQL test is NOT code = HCGQL) applicable for MALE patients.Check with nurse about probable order error.If Tumor Marker Test needed, nu rse should order test "HCG TU"(Test #550.83133)---- - BASIC METABOLIC [id number] 23:53:00 Test Item Value Reference Range Interpretation [...] code = CA) mg/dL 8.4-10.2 HCG SERUM [id number] 23:53:00 Test Item Value Reference Range Interpretation Comments HCG SERUM QUAL (test NEGATIVE NEGATIVE This HC GQL test is NOT code = HCGQL) applicable for MALE patients.Check with nurse about probable order error.If Tumor Marker Test needed, nu rse should order test "HCG TU"(Test #550.55060)---- - URINALYSIS [id number] 23:44:00 Test Item Value Reference Range Interpretation [...] A BACU) Urine Source? Clean CatchCBC W/O [id number] 23:36:00 Test Item Value Reference Range Interpretation [...] 8.4 fL 6.7-11.0 N = MPV) URINALYSIS [id number] 23:36:00 Test Item Value Reference Range Interpretation [...] PH DIPSTICK (test code 5.0 5.0-8.0 = GABYB) UA PROTEIN DIPSTICK (test 30 (1+) mg/dL [...] NONE BACU) Urine Source? Clean CatchCOMPREHENSIVE METABOLIC [id number] 16:57:00 Test Item Value Reference Range Interpretation [...] TOTAL (test code = ALKP) COMPREHENSIVE METABOLIC [id number] 16:50:00 Test Item Value Reference Range Interpretation [...] TOTAL (test code = ALKP) CBC W/AUTO [id number] 16:49:00 Test Item Value Reference Range Interpretation [...] K/mm3 0.0-0.2 N DRUGS OF ABUSE SCREEN [id number] 20:14:00 Test Item Value Reference Range Interpretation [...] = METHAURN) concentrati on: 300 ng/mL URINALYSIS [id number] 20:12:00 Test Item Value Reference Range Interpretation [...] code = KIERRA) UA LEUKOCYTE ESTERASE 25 Aym/micL Amy/micL NEGATIVE A DIPSTICK (test code = LEUU) UA WBC (test code = WBCU) 0-2 WBC/HPF NONE UA RBC (test code = RBCU) TNTC RBC/HPF 0-3 A UA EPITHELIAL CELLS (test 0-3 EPI/HPF 0-3 code = EPIU) UA BACTERIA (test code = TRACE NONE BACU) UR HCG [id number] 20:12:00 Test Item Value Reference Range Interpretation Comments UR HCG QUAL (test code = HCGQLU) NEGATIVE NEGATIVE URINALYSIS [id number] 20:03:00 Test Item Value Reference Range Interpretation [...] (test code = NONE BACU) UR HCG [id number] 20:03:00 Test Item Value Reference Range Interpretation Comments UR HCG QUAL (test code = HCGQLU) NEGATIVE
[2020-07-31 17:35] LABS: Absolute Lymphocytes (CBC) 1.8 K/uL (0.7-4.9); Basophils % 0.5 % (0-1.3); Hematocrit 34.6 % (36.0-45.0); Lymphocytes % 28.5 % (15.3-44.8); MPV 6.6 fL (7.6-11.3); RBC Red Blood Cell Count 3.46 M/uL (3.86-4.86)
[2020-07-31] MEDS ORDERED: FENTANYL CITR 100 MCG/2 ML ONE (17:38)
[2020-07-31] MEDS ORDERED: ONDANSETRON 4 MG/2 ML VIAL ONE (17:38)
[2020-07-31] MEDS ORDERED: NA CHLORIDE 0.9% 500 ML ONE (17:38)
[2020-07-31 17:53] LABS: Urine Blood 3+ (NEG); Urine Glucose NEGATIVE (NEG); Urine Protein 1+ (NEG); Urine Specific Gravity >1.030 (1.005-1.030); Urine pH 5.5 (5.0-7.0)
--- NOTE | 2020-07-31 18:01 | RAD REPORT ---
EXAM DESCRIPTION: CT - Stone Protocol - 07/31/2020 5:45 pm CLINICAL HISTORY: Flank pain. HEMATURIA COMPARISON: Stone Protocol dated 02/07/2018 TECHNIQUE: Axial images were obtained without oral or IV contrast. Lack of contrast limits solid org an and vascular assessment. The [id number] spans the entirety of the system partially obscuring uppermost abdomen and lung bases. Coronal reformatted images were obtained and reviewed. All CT scans are performed using dose optimization technique as appropriate and may include automated exposure control or mA/KV adjustment according to patient size. FINDINGS: The lower lung chirinos are clear. Imaged portions of the liver and spleen show no suspicious findings on non-contrast imaging. The panc reas and adrenal glands are normal. No pathologic lymphadenopathy in the abdomen or pelvis. No urinary tract stones or obstructive uropathy. No bowel obstruction, free air, free fluid or abscess. Appendectomy.Moderate stool is present through out the colon. No significant bony abnormality. IMPRESSION: No urinary tract stones or obstructive uropathy.
[2020-07-31 18:26] LABS: ALT/SGPT 17 U/L (12-78); AST/SGOT 19 U/L (15-37); Albumin 4.1 g/dL (3.4-5.0); Alkaline Phosphatase 94 U/L (45-117); BUN Blood Urea Nitrogen 12 mg/dL (7-18); Bicarbonate 25 mmol/L (21-32); Bilirubin Direct < 0.1 mg/dL (0-0.2); Bilirubin Total 0.3 mg/dL (0.2-1.0); Glucose Level 119 mg/dL (74-106); Lipase 84 U/L (73-393); Potassium 4.1 mmol/L (3.5-5.1); Protein, Total 7.7 g/dL (6.4-8.2); Sodium Level 138 mmol/L (136-145)
[2020-07-31 19:50] LABS: Urine Bacteria 20-50 /HPF (<20); Urine RBC TNTC /HPF (NONE SEEN)
--- NOTE | 2020-07-31 19:54 | ER ---
Nurse's Notes [facility] Name: Erin Saha Age: 35 yrs Sex: Female : 1985 Arrival Date: 07/31/2020 Time: 13:12 Bed 23 Private MD: Diagnosis: Flank Pain;Urinary tract infection, site not specified Presentation: 07/31 13:22 Chief complaint: Patient states: Blood in urine, R flank pain, blood in stool for 9 ll1 days. + N/V/D. No fever. States she has a history of kidney stones/problems. Coronavirus screen: Client denies travel out of the [place] in the last 14 days. At this time, the client does not indicate any symptoms associated with coronavirus-19. Ebola Screen: Patient denies travel to an Ebola-affected area in the 21 days before illness onset. Initial Sepsis Screen: Does the patient meet any 2 criteria? No. Patient's initial sepsis screen is negative. Does the patient have a suspected source of infection? Yes: Dysuria/Frequency/Urgency/UTI. Risk Assessment: Do you want to hurt yourself or someone else? Patient reports no desire to harm self or others. Onset of symptoms was July 20, 2020. 13:22 Method Of Arrival: Ambulatory ll1 13:22 Acuity: KOKO 3 ll1 Triage Assessment: 13:26 General: Appears uncomfortable, Behavior is calm, cooperative, appropriate for age. ll1 Pain: Complains of pain in flank Quality of pain is described as aching. GI: Abdomen is flat, Bowel sounds present X 4 quads. Abd is soft and non tender X 4 quads. Reports nausea. : Reports burning with urination, pain urinary frequency, blood in urine. 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 - Social history:: Smoking status: Patient denies any tobacco usage or history of. Screenin:28 Abuse screen: Denies threats or abuse. Denies injuries from another. Nutritional iw screening: No deficits noted. Tuberculosis screening: No symptoms or risk factors identified. Fall Risk None identified. Assessment: 14:27 Reassessment: Received VO from Marcelina ALLRED for Ct stone. sv 17:27 General: Appears in no apparent distress. Behavior is calm, cooperative. Pain: iw Complains of pain in right mid back and right low back Pain currently is 9 out of 10 on a pain scale. Neuro: Level of Consciousness is awake, alert, obeys commands. Vital Signs: 13:22 BP 136 / 99; Pulse 107; Resp 17; Temp 98.7; Pulse Ox 95% on R/A; Weight 81.65 kg; ll1 Height 5 ft. 3 in. (160.02 cm); Pain 7/10; 17:28 BP 121 / 78; Pulse 89; Resp 16; Pulse Ox 98% on R/A; Pain 9/10; iw 13:22 Body Mass Index 31.89 (81.65 kg, 160.02 cm) ll1 ED Course: 13:12 Patient arrived in ED. mr 13:24 Triage completed. ll1 13:25 Arm band placed on. ll1 16:46 Marcelina Jay FNP-C is [facility]. kb 16:47 Huber Gandhi MD is Attending Physician. kb 16:48 Candi Mendosa, DANIA is Primary Nurse. iw 17:28 Initial lab(s) drawn, by me, sent to lab. Inserted saline lock: 24 gauge in left hand, iw using aseptic technique. 17:30 Patient has correct armband on for positive identification. iw 17:45 CT Stone Protocol In Process Unspecified. EDMS 20:05 No provider procedures requiring assistance completed. IV discontinued, intact, iw bleeding controlled, No redness/swelling at site. Pressure dressing applied. Administered Medications: 17:29 Drug: NS 0.9% 1000 ml Route: IV; Rate: 1000 ml; Site: left hand; iw 17:29 Drug: fentaNYL (PF) 50 mcg Route: IVP; Site: left hand; iw 17:29 Drug: Zofran (Ondansetron) 4 mg Route: IVP; Site: left hand; iw 18:45 Drug: fentaNYL (PF) 50 mcg Route: IVP; Site: left hand; Outcome: 19:54 Discharge ordered by MD. hickman 20:06 Discharged to home ambulatory. iw 20:06 Condition: good 20:06 Discharge instructions given to patient, Instructed on discharge instructions, follow up and referral plans. Demonstrated understanding of instructions, follow-up care, medications, Prescriptions given X 1. 20:07 Patient left the ED. iw Signatures: Dispatcher [employer] EDMS Marcelina Jay, JASIEL GRACIA-Verna Gonzalez, RN RN Nguyen Ambrosio Irene, Ankita Moss RN RN RN ll1
--- NOTE | 2020-07-31 19:55 | EDPHYS ---
Physician Documentation [facility] Name: Erin Saha Age: 35 yrs Sex: Female : 1985 Arrival Date: 07/31/2020 Time: 13:12 Bed 23 Private MD: ED Physician Huber Gandhi HPI: 07/31 18:34 This 35 yrs old Female presents to ER via Ambulatory with complaints of Flank kb Pain, Vaginal Bleeding. 18:38 The patient complains of pain in the right flank. The pain radiates to the abdomen. kb Onset: The symptoms/episode began/occurred yesterday. Modifying factors: The symptoms are alleviated by nothing. the symptoms are aggravated by nothing. Associated signs and symptoms: Pertinent positives: dysuria, hematuria. Severity of pain: At its worst the pain was moderate in the emergency department the pain is unchanged. The patient has not experienced similar symptoms in the past. The patient has not recently seen a physician. Pt reports flank pain, lower abd pain, dysuria, n/v. Has had pain like this multiple times . 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 - Social history:: Smoking status: Patient denies any tobacco usage or history of. ROS: 18:33 Constitutional: Negative for fever, chills, and weight loss, Cardiovascular: Negative kb for chest pain, palpitations, and edema, Respiratory: Negative for shortness of breath, cough, wheezing, and pleuritic chest pain, MS/Extremity: Negative for injury and deformity, Skin: Negative for injury, rash, and discoloration, Neuro: Negative for headache, weakness, numbness, tingling, and seizure. 18:33 Abdomen/GI: Positive for abdominal pain, nausea and vomiting. 18:33 Back: Positive for flank pain, bilaterally. Exam: 18:33 Constitutional: This is a well developed, well nourished patient who is awake, alert, kb and in no acute distress. Head/Face: Normocephalic, atraumatic. Cardiovascular: Regular rate and rhythm with a normal S1 and S2. No gallops, murmurs, or rubs. No pulse deficits. Respiratory: Respirations even and unlabored. No increased work of breathing, no retractions or nasal flaring. Skin: Warm, dry with normal turgor. Normal color. MS/ Extremity: Pulses equal, no cyanosis. Neurovascular intact. Full, normal range of motion. Neuro: Awake and alert, GCS 15, oriented to person, place, time, and situation. Moves all extremities. Normal gait. 18:33 Abdomen/GI: Inspection: abdomen appears normal, Bowel sounds: normal, in all quadrants, Palpation: soft, in all quadrants, mild abdominal tenderness, in all quadrants. 18:33 Back: CVA tenderness, that is moderate, is noted bilaterally. Vital Signs: 13:22 BP 136 / 99; Pulse 107; Resp 17; Temp 98.7; Pulse Ox 95% on R/A; Weight 81.65 kg; ll1 Height 5 ft. 3 in. (160.02 cm); Pain 7/10; 17:28 BP 121 / 78; Pulse 89; Resp 16; Pulse Ox 98% on R/A; Pain 9/10; iw 13:22 Body Mass Index 31.89 (81.65 kg, 160.02 cm) ll1 MDM: 16:47 Patient medically screened. kb 18:32 Data reviewed: vital signs, nurses notes. Data interpreted: Pulse oximetry: on room air kb is 98 %. Interpretation: normal. Counseling: I had a detailed discussion with the patient and/or guardian regarding: the historical points, exam findings, and any diagnostic results supporting the discharge/admit diagnosis, lab results, radiology results, the need for outpatient follow up, a family practitioner, to return to the emergency department if symptoms worsen or persist or if there are any questions or concerns that arise at home. 07/31 14:36 Order name: Urine Microscopic Only; Complete Time: 19:51 kb 07/31 16:54 Order name: Basic Metabolic Panel; Complete Time: 18:31 kb 07/31 16:54 Order name: CBC with Diff; Complete Time: 17:45 kb 07/31 16:54 Order name: Hepatic Function kb 07/31 16:54 Order name: Lipase kb 07/31 16:55 Order name: Liver (Hepatic) Function; Complete Time: 18:31 EDMS 07/31 14:27 Order name: CT Stone Protocol; Complete Time: 18:01 sv 07/31 16:55 Order name: Lipase; Complete Time: 18:31 EDMS 07/31 17:10 Order name: Urine Dipstick--Ancillary (enter results) 07/31 17:10 Order name: Urine --Ancillary (enter results) 07/31 17:11 Order name: Urine Dipstick-Ancillary; Complete Time: 17:54 EDMS 07/31 17:11 Order name: Urine --Ancillary; Complete Time: 17:54 EDAL 07/31 19:52 Order name: Urine Culture [facility] 07/31 14:36 Order name: Urine Test (obtain specimen); Complete Time: 17:45 kb 07/31 14:36 Order name: Urine Dipstick-Ancillary (obtain specimen); Complete Time: 17:45 kb 07/31 16:54 Order name: IV Saline Lock; Complete Time: 17:21 kb 07/31 16:54 Order name: Labs collected and sent; Complete Time: 17:21 kb Administered Medications: 17:29 Drug: NS 0.9% 1000 ml Route: IV; Rate: 1000 ml; Site: left hand; iw 17:29 Drug: fentaNYL (PF) 50 mcg Route: IVP; Site: left hand; iw 17:29 Drug: Zofran (Ondansetron) 4 mg Route: IVP; Site: left hand; iw 18:45 Drug: fentaNYL (PF) 50 mcg Route: IVP; Site: left hand; iw Disposition: 08/01 08:17 Co-signature as Attending Physician, Huber Gandhi MD I agree with the assessment and kdr plan of care. Disposition: 07/31/20 19:54 Discharged to Home. Impression: Flank Pain, Urinary tract infection, site not specified. - Condition is Stable. - Discharge Instructions: Urinary Tract Infection, Adult, [id number], Flank Pain, [id number]. - Prescriptions for Macrobid 100 mg Oral Capsule - take 1 capsule by ORAL route every 12 hours for 10 days; 20 capsule. - Medication Reconciliation Form, Thank You Letter, Antibiotic Education, Prescription Opioid Use form. - Follow up: Emergency Department; When: As needed; Reason: Worsening of condition. Follow up: Private Physician; When: 2 - 3 days; Reason: Recheck today's complaints, Continuance of care, Re-evaluation by your physician. Signatures: Dispatcher [employer] EDAL Marcelina Jay, HAND SEWER SHOES-C HAND SEWER SHOES-Kieranb Huber Gandhi MD MD kdr Williams, Irene, RN RN iw Ankita Quiros RN RN ll1 Corrections: (The following items were deleted from the chart) 07/31 20:07 19:54 07/31/2020 19:54 Discharged to Home. Impression: Flank Pain; Urinary tract iw infection, site not specified. Condition is Stable. Forms are Medication Reconciliation Form, Thank You Letter, Antibiotic Education, Prescription Opioid Use. Follow up: Emergency Department; When: As needed; Reason: Worsening of condition. Follow up: Private Physician; When: 2 - 3 days; Reason: Recheck today's complaints, Continuance of care, Re-evaluation by your physician. kb
[2020-07-31 20:11] VITALS: TEMP 98.7
[2020-07-31 20:12] VITALS: BP 121/78; O2SAT 98
== END 2020-07-31 20:07 | disposition home or self-care (01) ==
LOC: ER 13:09
DX: N39.0 Urinary tract infection, site not specified (principal); Z88.5 Allergy status to narcotic agent; Z88.6 Allergy status to analgesic agent; Z88.8 Allergy status to other drugs, medicaments and biological substances
CPT/HCPCS: 36415; 74176; 76377; 80048; 80076; 81003; 81015; 81025; 83690; 85025; 87086; 87088; 96374; 96375; 99284; J2405; J3010; J7040